=== PATIENT | male | born 1955 | race Caucasian/White ===

== ENCOUNTER 2017-06-17 11:07 | Emergency (ER) | payer OTHER ==
[2017-06-17] MEDS ORDERED: SOLU-Medrol 125 MG VIAL IVP ONE ×2 (11:13→14:15)
[2017-06-17] MEDS ORDERED: BENADRYL INJ 50 MG VIAL IVP ONE ×2 (11:13→14:15)
[2017-06-17] MEDS ORDERED: ADRENALINE CHL INJ IM ONE ×2 (11:13→14:15)
[2017-06-17] MEDS ORDERED: BENADRYL INJ 50 MG VIAL ONE ×2 (11:14→14:03)
[2017-06-17] MEDS ORDERED: SOLU-Medrol 125 MG VIAL ONE ×2 (11:14→14:03)
[2017-06-17] MEDS ORDERED: ADRENALINE CHL INJ ONE ×2 (11:14→14:03)
[2017-06-17 11:16] VITALS: BMI 31.3
[2017-06-17] MEDS ORDERED: NS 1000 ML 1,000 ML ONE (11:16)
--- NOTE | 2017-06-17 11:19 | DR.GENAD ---
HPI - HPI Comment HPI Comment: HAVE SEVERAL FOOD ALLERGIES BUT HAVE NOT EATING ANY NEW FOOD RECENTLY. TAKES LISINOPRIL FOR FEW YEARS NOW. NO SKIN RASH. - Complaint/Symptoms Chief Complaint Doctors Comments: TONGUE SWOLLEN SINCE THIS AM. PATIENT UNABLE TO CLOSE HIS MOUTH. TONGUE EXTENDING OUTWARDS FROM THE MOUTH. SLIGHT THROAT DISCOMFORT AND MILD RESPIRATORY DISTRESS. - Nurses notes reviewed Nurses Notes Review: Yes - Source History Provided: Patient, Family Member - Mode of Arrival Mode of Arrival: Ambulatory - Timing Came on: Suddenly - Duration Duration: Constant Duration: Days - Severity Severity: Moderate PMH - PMH Past Medical History: CVA, Diabetes, Hypertension Past Surgical History: Yes Surgical History: Abdominal Surgery, Appendectomy, Ortho Surgery - Family History Family Medical History: Cancer, [place], Hypertension - Social History Do you use any recreational Drugs:: No ROS - Review of Systems Constitutional: No Symptoms Reported Eyes: No Symptoms Reported ENTM: Mouth Swelling (TONGUE SWOLLEN.) Respiratoy: Non-Productive Cough, Short of Breath, Wheezing. negative: Productive Cough, Hemoptysis Cardiovascular: Chest Pain Gastrointestinal/Abdominal: No Symptoms Reported Genitourinary: No Symptoms Reported Neurological: No Symptoms Reported Musculoskeletal: No Symptoms Reported Integumentary: No Symptoms Reported Hematologic/Lymphatic: No Symptoms Reported Endocrine: No Symptoms Reported All Other Systems: Reviewed and Negative PE - Vital Signs Vitals: Temperature 98.4 F Pulse Rate [Right Brachial] 140 Pulse Rate 107 Respiratory Rate 20 Blood Pressure [Left Arm] 114/58 Blood Pressure [Right Arm] 158/70 Blood Pressure 172/80 O2 Sat by Pulse Oximetry 95 - General Limitations: Other (SPEACH NOT CLEAR.) General Appearance: Alert - Head Head Exam: Normal Inspection - Eyes Eye exam: Normal Appearance - ENT ENT Exam: Normal External Ear Exam External Ear Exam: Normal External Inspection TM/Canal Exam: Bilateral Normal Nose Exam: Normal Nose Exam Mouth Exam: Tongue Elevation, Tongue Swelling. negative: Trismus Throat Exam: Other (THROAT DIFFICULT TO VISUALLIZE DUE TO SWOLLEN TONGUE.) - Neck Neck Exam: Trachea Midline. negative: Tenderness, Meningismus, Lymphadenopathy - Chest Chest Inspection: Symmetric Chest Wall Rise - Respiratory Respiratory Exam: Normal Lung Sounds Bilat Respiratory Exam: Bilateral Wheezing, Bilateral Rhonchi, Lower Wheezing, Lower Rhonchi - Cardiovascular Cardiovascular Exam: Tachycardia - Abdominal Exam Abdominal Exam: Normal Bowel Sounds, Soft. negative: Tenderness - Extremities Extremities Exam: Normal Inspection - Back Back Exam: Normal Inspection - Neurologic Neurological Exam: Alert, Oriented X3, Other (SPEACH NOT CLEAR.) - Psychiatric Psychiatric Exam: Anxious - Skin Skin Exam: Erythema MDM - Additional Information Additional Information Obtained From: Family - Differential Diagnosis Differential Diagnosis: ALLERGIC REACTION, ANGIOEDEMA Course - Treatment Treatment: SEE ORDERS. EPI IM, BENADRYL AND SOLUMEDROL IV. PULSE OXY MAINTAIN. SWELLING IMPROVE WITH MEDS. SPEECH CLEAR AND PT CAN CLOSE HIS MOUTH. DRANK FLUID WITHOUT DIFFICULTY. D/C HOME WITH MEDS. STOP LISINOPRIL AND STARTED CLONIDINE. - Reevaluation 1st: Improved 2nd: Improved 3rd: Improved (SWELLING IMPROVE.) - Diagnosis Discharge Problem: Angioedema Qualifiers: Encounter type: initial encounter Qualified Code(s): T78.3XXA - Angioneurotic edema, initial encounter Allergic reaction Qualifiers: Encounter type: initial encounter Qualified Code(s): T78.40XA - Allergy, unspecified, initial encounter - Discharge Plan Disposition: HOME, SELF-CARE Condition: Stable Prescriptions: Clonidine HCl [CATAPRES 0.1 MG TAB *] 0.1 mg PO BID #60 tab Hydroxyzine Pamoate [Vistaril] 25 mg PO TID PRN #20 cap PRN Reason: Methylprednisolone Dosepak 4Mg [MEDROL DOSEPAK (4 mg tab x 21)] 1 sridhar PO ONCE # 1 sridhar - Follow ups/Referrals Follow ups/Referrals: [facility],None [Primary Care Provider] - 3 days - Instructions Instructions: Allergies, [id number] Additional Instructions: RETURN TO ED IF WORSE. PT IT TO TAKE HIS BP DAILY AND TAKE WITH HIM TO HIS DOCTOR, AND PT IS TO DISCONTINUE HIS LISINOPRIL,
[2017-06-17] MEDS ORDERED: NS 1000 ML 1,000 ML IV SCH (12:00)
[2017-06-17 14:40] VITALS: BP 158/70
== END 2017-06-17 15:49 | disposition home or self-care (01) ==
LOC: ER 11:31
DX: T78.40XA Allergy, unspecified, initial encounter (principal); T78.3XXA Angioneurotic edema, initial encounter
CPT/HCPCS: 96372; 96374; 96375; 99283; 99284; J0170; J1200; J2930